=== PATIENT | male | born 1925 | race Caucasian/White ===

== ENCOUNTER 2017-02-11 19:14 | Emergency (ER) | payer MEDICARE ==
[~2017-02-11] VITALS: Ht 167.6 cm; Wt 68.0 kg
[~2017-02-11 19:14] MED LIST: ASPI81TA2 PO; DIVA125C PO; DONE5TAB3 PO; METF500T4 PO; METO-302 PO; OXYB5TAB11 PO; QUET25TA PO; SIMV20TA6 PO
[2017-02-11 19:33] VITALS: BP 131/70
--- NOTE | 2017-02-11 21:30 | NUR ---
INFORMED BY ADMITTING "PT LEFT"
== END 2017-02-11 21:31 | disposition left against medical advice (07) ==
LOC: ER 19:21
DX: Z53.21 Procedure and treatment not carried out due to patient leaving prior to being seen by health care provider (principal)
CPT/HCPCS: A4606; Z7610